=== PATIENT | female | born 1965 | race Caucasian/White ===

== ENCOUNTER 2016-09-25 10:35 | Day surgery (SDC) | payer OTHER ==
[~2016-09-25] VITALS: Ht 172.7 cm; Wt 116.8 kg
[2016-09-25] VITALS (8 sets, daily range): BP systolic 114–135; BP diastolic 57–76; PULSE 64–112; RESP 12–17; O2SAT 95–99
[~2016-09-25 10:35] MED LIST: ACET-171 PO; ADV100INH IH; ALBU8.5H2 INHALATION; CITA20TA11 PO; IBUP200C PO; IPRA15SP NS; SUMA50TA31 PO
[2016-09-25] MEDS ORDERED: fentaNYL-PF 50 mCg/mL 2 mL Inj ONE (10:36)
[2016-09-25] MEDS ORDERED: Lidocaine PF 1% 30 mL Inj ONE (10:36)
[2016-09-25] MEDS ORDERED: Propofol 10,000 mCg/mL 20 mL Inj ONE (10:36)
[2016-09-25] MEDS ORDERED: MetoCLOpramide 5 mg/mL 2 mL Inj ONE (10:36)
[2016-09-25] MEDS ORDERED: Dexamethasone 4 mg/mL Inj ONE (10:36)
[2016-09-25] MEDS ORDERED: Ondansetron 2 mg/mL 2 mL Inj ONE (10:36)
[2016-09-25] MEDS ORDERED: CeFAZolin Inj 2 gm / 50mL D5W IV ONE (10:53)
[2016-09-25] MEDS: Lactated Ringer's 1,000 ML IV SCH ×2 (11:02→12:18)
[2016-09-25] MEDS ORDERED: CeFAZolin Inj 2 GM in IV Premix 1 EACH IV ONE (12:00)
--- NOTE | 2016-09-25 12:02 | PCM.HPANE ---
Patient Data Date of Service: Sep 25, 2016 Surgeon Admitting Provider: Attending Provider:Tommy Dozier DPM Primary Care Physician:Amanda Gil MD Other Provider:Lauren Gupta Anesthesia Reason for Visit Plantar Fascial Fibromatosis, Mononeuropathy Ht/WT & BMI Height (Feet): 5 Height (Inches): 8.00 Weight (Kilograms): 116.8 Body Mass Index 39.00 Allergies Coded Allergies: No Known Allergies (Verified Allergy, Unknown, 09/22/16) Past Anesthesia History Anesthesia History: Denies:: Anesthesia Reactions, Malignant Hyperthermia Diabetes History Hx Diabetes?: No MRSA MRSA: No Medications Blood Thinner: Aspirin Hypertension Medication: No Home Meds Incl Beta Luis: No Reported Medications Albuterol HFA (Proair HFA)8.5 Gm Hfa.aer.ad2 Puffs INHALATION Q4H PRN PRN #1 INHALER 09/22/16 Acetaminophen 500 Mg Tablet1,500 Mg PO Q24HY PRN For Pain 09/22/16 Ipratropium [place] (Ipratropium [place] 0.06% Nasal)15 Ml Spray1 [place] NS TID # 1 BOTTLE Ref 0 09/22/16 Citalopram 20 Mg Dbwgis46 Mg PO DAILY Ref 0 09/22/16 Fluticasone/Salmeterol (Advair 100-50 Diskus)60 Puffs/Inh Disk1 Puffs IH BID #1 DISK Ref 0 09/22/16 Ibuprofen 200 Mg Jyakndx958 Mg PO QID PRN For Pain Ref 0 07/26/14 Sumatriptan Succinate (Imitrex)50 Mg Ufbsha01 Mg PO PRN PRN For Headache 07/26/14 Discontinued Reported Medications Dm/PE/Acetaminophen/Doxylamine (Daytime-Nighttime Cold-Flu Liq)592 Ml Liquid.tdw130 Ml PO PRN PRN For Congestion 07/26/14 Multivitamin (Daily Multiple Vitamin)1 Each Tablet1 Each PO DAILY 07/26/14 Aspirin (Aspir 81)81 Mg Tablet.dr81 Mg PO DAILY Ref 0 07/26/14 Acetaminophen 500 Mg Mpriug970 Mg PO Q 24H PRN PRN 07/26/14 Naproxen 500 Mg Zgw170 Mg PO BID PRN For Pain Ref 0 07/26/14 Spironolactone/HCTZ 25-25 mg (Aldactazide 25-25 mg)1 Tab Tablet1 Tab PO DAILY 30 Days Ref 0 07/26/14 History History of ENT Problems?: No Hx of Heart Problems?: Yes Cardiovascular History: Positive for:: Cardiac Surgery (HEART CATH WNL 08/2013 ) Chest Pain (08/2013 ) Edema (LOWER LEGS) Hypertension Denies:: Heart Murmur Irregular Heartbeat (PT REPORTS PALPITATIONS, THO NONE RECENTLY) Hx of Respiratory Problem?: Yes Respiratory History: Positive for:: Asthma (PFT 08/21 SHOWS MILD OBSTRUCTIVE DEFECT) Cough (RECENT) Use of Inhalers / NEBS Denies:: Use of C-PAP Machine Hx Neurologic Problems?: Yes Neurological History: Positive for:: Headaches Hx of GI Problems?: Yes Gastrointestinal History: Positive for:: Gall Bladder Disease (CHOLELITHIASIS) Hx of Problems?: No Female Hx: Denies:: Currently Skin History: Denies:: History Skin Disorders? Pressure Ulcers Hx Musculoskeletal Problems?: Yes Musculoskeletal History: Positive for:: Musculoskeletal Trauma (S/P KNEE SCOPE ,RT PLANTAR FASCIA RELEASE) Denies:: Back Injury (C/OF LOWER BACK PAIN) Hx of Psycho/Social Problems?: Yes Psycho Social History: Positive for:: Anxiety Hx Depression Hx Surgeries?: Yes (HEART CATH,KNEE SCOPE,C/S X2,RT PLANTAR FASCIAL RELEASE) Hx Any Other Health Problems?: Yes Other History: Positive for:: Hospitalization (CARDIAC) Denies:: Cancer Endocrine Disease Thyroid Disease History Blood Transfusions: Positive for:: Blood Transfuse Reaction Denies:: Blood Transfusions Hx Diabetes: No Hx Alcohol Use: Yes (RARELY)Hx Substance Use: No Smoking Status: Unknown if Ever Smoker Have You Smoked inLast 12 mo: No Stop/Bang S-Snoring: Do You Snore Loudly: No T-Tired: feel tired, fatigued: Yes O-Obsered: Observed not breath: No P-Blood Pressure: treated: No B- Body Mass Index > 35 kg/m2: Yes A- Age over 50: No N- Neck Large Circumference: Yes G- Gender Male: No KAREN Total Score: 3 KAREN Risk Assessment: High Risk, =/>3 Yes KAREN Category 4 OutPt Procedure: Yes Risk Assessment Category Category 1A: Patient has history of documented sleep apnea, and HAS NOT received any narcotic, sedative or anesthesia administration during this stay. Category 1B: Patient has history of documented sleep apnea, and HAS received any narcotic , sedative or anesthesia administration during this stay Category 2: Patient has SUSPECTED Obstructive Sleep Apnea, and HAS received any narcotic , sedative or anesthesia administration during this stay. Category 3: Patient has SUSPECTED Obstructive Sleep Apnea and HAS NOT received narcotic, sedative or anesthesia administration during this stay. Category 4: Outpatient in Procedural Areas with known sleep apnea or who screen positive for High Risk via the STOP/BANG questionnaire. Exam Exam Vital Signs Vital Signs Date Time Temp Pulse Resp B/P Pulse Ox O2 Delivery O2 Flow Rate FiO2 09/25/16 11:02 35.9 112 16 135/70 96 Room Air General Appearance: Alert, Oriented X3, Cooperative, No Acute Distress HEENT/AIRWAY: MP 2, Neck Movement (from), Mouth Opening (3 fb), Other ( bilateral nasal congestion) Lungs: Clear to Auscultation, Normal Air Movement Heart: Exam Unremarkable, Regular Rate/Rhythm, No Murmurs/Rubs/Gallops Meds/Labs/Diagnostics Admission Meds Current Medications Lactated Ringer's (Lr) 1,000 ml @ 120 mls/hr Q8H20M IV Last administered on 11:02; Start 09/25/16 at 05:00; Stop 09/25/16 at 13:19 Plan Impression Patient chart reviewed, patient interviewed and anesthestic plan with risks, benefits, and alternatives discussed, and informed consent obtained. NPO Status: 09/25 at 1999 ASA Physical Status: ASA2 Mod Systemic Disease Anesthetic Plan: GA Bene/Risks/Altern/Consents: Yes HP Complete Prior to Induction: Yes Jas Calderon MD Sep 25, 2016 12:02
[2016-09-25] MEDS ORDERED: hydrALAZINE 20 mg/mL Inj IVPUSH PRN (12:40)
[2016-09-25] MEDS ORDERED: fentaNYL-PF 50 mCg/mL 2 mL Inj IVPUSH PRN (12:40)
[2016-09-25] MEDS ORDERED: Lactated Ringer's 1,000 ML IV SCH (12:40)
[2016-09-25] MEDS ORDERED: HYDROmorphone 1 mg/mL Inj IVPUSH PRN (12:40)
[2016-09-25] MEDS ORDERED: EPHEDrine Sulfate 50 mg/mL Inj IVPUSH PRN (12:40)
[2016-09-25] MEDS ORDERED: EPHEDrine Sulfate 50 mg/mL Inj IM PRN (12:40)
[2016-09-25] MEDS ORDERED: Ondansetron 2 mg/mL 2 mL Inj IVPUSH PRN (12:40)
[2016-09-25] MEDS ORDERED: hydrOXYzine Inj 25 MG/1 mL SDV IM PRN (12:40)
[2016-09-25] MEDS ORDERED: Phenylephrine 10,000 mCg/mL Inj IVPUSH PRN (12:40)
[2016-09-25] MEDS ORDERED: Albuterol 2.5 mg/3 mL Inhalation Solution NEB PRN (12:40)
[2016-09-25] MEDS ORDERED: Atropine 0.4 mg/mL Inj IVPUSH PRN (12:40)
[2016-09-25] MEDS ORDERED: Lactated Ringer's 500 ML IV PRN (12:40)
[2016-09-25] MEDS ORDERED: Lidocaine 1%-Epi 1:100,000 20 mL Inj NERVEBLOCK ONE (12:58)
[2016-09-25] MEDS ORDERED: Bupivacaine-MPF 0.5% 30 mL Inj INFILTRATE ONE (12:59)
[2016-09-25] MEDS ORDERED: Dexamethasone 4 mg/mL Inj INTRARTICU ONE (13:31)
[2016-09-25] MEDS ORDERED: Bacitracin Ointment Packet TOPICAL ONE (13:43)
[2016-09-25] MEDS ORDERED: HYDROcodone-APAP 5-325 mg Tablet PO PRN (14:15)
--- NOTE | 2016-09-25 14:30 | PCM.PODPO ---
Podiatry Operative Report Date of Service: Sep 25, 2016 Date of Service Sep 25, 2016 Pre Operative Diagnosis Tarsal tunnel left lower extremity Plantar fasciitis left lower extremity Ryan's neuritis left lower extremity Ganglion cyst left lower extremity Post Operative Diagnosis Same as preoperative diagnoses Procedure Tarsal tunnel release left lower extremity Excision of ganglion cyst left ankle Plantar fasciectomy left lower extremity Ryan's nerve release left lower extremity Surgeon Surgeon: Tommy Dozier DPM Assistants: None Indication for Procedure Chronic pain of left foot and ankle Findings Small ganglion cyst appearing to emanate from the posterior ankle capsule Details of Procedure Patient was identified in the preoperative holding area. All preoperative comorbidities and allergies were identified and thoroughly discussed. The patient was transported into the operating room and placed on the operating room table in the normal supine position. This patient was then prepped and draped in the normal aseptic technique. Attention was first paid to the medial aspect of the left foot and ankle. A curvilinear incision extending from the tarsal tunnel slightly proximal to the level of the ankle joint was made with a #10 blade extending distally curving anteriorly extending onto the plantar aspect of the left foot slightly anterior to the weightbearing surface of the calcaneus. Once that initially her skin all subcutaneous neurovascular structures were identified and retracted out of the surgical field. Small bleeders were then cauterized. Blunt dissection with a Metzenbaum scissor was performed to expose deep fascia and a large amount of adipose tissue directly overlying the abductor hallucis muscle belly and tarsal tunnel. A rongeur was utilized to remove all overlying adipose tissue so that the flexor retinaculum and the abductor hallucis muscle belly were clearly visualized. A Metzenbaum scissor was utilized to extend dissection to the plantar foot and the medial band of the plantar fascia was clearly identified. A grooved director was then inserted deep to the distal aspect of the flexor retinaculum and a #15 blade was used to incise through the flexor retinaculum in its entirety. Blunt dissection was utilized to identify the neurovascular bundle which was retracted posteriorly. Inspection of the tissue deep to the neurovascular bundle revealed a small ganglion cyst. Blunt dissection was carried out to identify the entirety of the ganglion cyst which appeared to emanate from the posterior ankle capsule. The ganglion cyst was then excised. Attention was then paid to the abductor hallucis muscle belly A Voss retractor was utilized to superficially retract the muscle belly so visualization of the calcaneal tunnel could be performed. The Metzenbaum scissor was used to release the septum from the proximal and distal aspect of the abductor muscle belly ensuring no damage to underlying neurovascular structures. A fresh #15 blade was then utilized to excise approximately a 1/2 cm portion of the medial band of the plantar fascia. This wound was then copiously flushed with large amounts of normal saline. Direct visualization of the posterior tibial nerve was performed and a significant amount of adipose tissue was removed surrounding the nerve throughout the tarsal tunnel extending distally to the bifurcation. Ryan's nerve was visualized and was noted not to have any further irritation deep to the abductor hallucis muscle belly. The flexor retinaculum was left un repaired. Subcutaneous closure was performed utilizing number 3. 0 Vicryl. And skin closure was performed utilizing number 3. 0 Prolene with simple suture technique. This wound was then dressed with Xeroform sterile 4 x 4 gauze Kerlix and a mildly compressive Brice bandage. The patient was awoken by anesthesia and transported to the operating room. Prior to her bandage being placed a postoperative block consisting of 20 mL by percent Marcaine plain was performed to the medial aspect of the ankle and an injection of 1 mL of 4 mg/mL of dexamethasone phosphate was performed. Grafts, Implants: None Complications There were no periprocedural complications identified. Condition Stable Anesthetic Administered: GA Catheters: None Output, Estimated Blood Loss: 20 Blood Admin during surgery: No Surgical Cast or Splint: None Surgical Specimen Removed: No Specimen sent to Pathology: No Post Operative Plan Ice and elevate left foot Nonweightbearing left foot Discharge to home when stable Follow-up in office in 1 week Keep dressing clean dry and intact Tommy Dozier DPM Sep 25, 2016 14:30
--- NOTE | 2016-09-25 19:51 | PCM.ANEP2 ---
Post Anesthesia Evaluation ASA/CMS Post Anesthesia Date of Service: Sep 25, 2016 VS in Patient's Normal Range?: Yes Resp Stable; Airway Patent?: Yes CV Function & Hydration Stable: Yes Mental Status Recovered?: Yes Pain control Satisfactory?: Yes N/V Control Satisfactory?: Yes Jas Calderon MD Sep 25, 2016 19:51
--- NOTE | 2016-09-25 19:51 | PCM.ANEP1 ---
Post Anesthesia Phase 1 PACU Phase 1 Assessment Date of Service: Sep 25, 2016 Vital Signs Vital Signs Date Time Temp Pulse Resp B/P Pulse Ox O2 Delivery O2 Flow Rate FiO2 09/25/16 16:00 36.7 64 16 114/76 98 Room Air 09/25/16 14:50 36.5 100 16 130/70 95 Room Air 09/25/16 14:40 104 17 126/57 96 Nasal Cannula 2 09/25/16 14:30 102 17 126/65 96 Nasal Cannula 2 09/25/16 14:25 96 15 118/62 99 Simple Mask 10 09/25/16 14:20 92 13 120/60 99 Simple Mask 10 09/25/16 14:15 97 12 124/63 99 Simple Mask 10 Anesthetic Administered: GA Level of Alertness: Awake, talking PARADA's with Equal Strength: Yes Pain: No Nausea or Vomiting: No Oxygen Delivery: Room Air Lungs: Clear to Auscultation, Normal Air Movement Dermatome Level: Full Sensation Jas Calderon MD Sep 25, 2016 19:51
== END 2016-09-25 23:59 | disposition home or self-care (01) ==
LOC: SAS 10:35
PROVIDERS: ATTEND Podiatrist Foot & Ankle Surgery
DX: M72.2 Plantar fascial fibromatosis (principal); G57.52 Tarsal tunnel syndrome, left lower limb; M67.472 Ganglion, left ankle and foot; G58.9 Mononeuropathy, unspecified; M79.672 Pain in left foot; I10 Essential (primary) hypertension; F41.9 Anxiety disorder, unspecified; F32.9 Major depressive disorder, single episode, unspecified; J45.909 Unspecified asthma, uncomplicated; E66.9 Obesity, unspecified; Z87.442 Personal history of urinary calculi; Z68.39 Body mass index [BMI] 39.0-39.9, adult; Z79.82 Long term (current) use of aspirin
CPT/HCPCS: 27630; 28035; 28062; J0690; J1100; J2405; J2765; J3010; J7120